=== PATIENT | male | born 1995 | race African-American/Black ===

== ENCOUNTER 2024-10-02 17:33 | Emergency (ER) | payer SELFPAY ==
[2024-10-02 17:41] VITALS: BP 147/88
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
[2024-10-02] MEDS: ADACEL 0.5 ML IM (18:52)
== END 2024-10-02 19:04 | disposition home or self-care (01) ==
LOC: EMR 17:33
PROVIDERS: EMERGENCY PHYSICIAN Emergency Medicine
DX: S21.111A Laceration without foreign body of right front wall of thorax without penetration into thoracic cavity, initial encounter (principal); V43.52XA Car driver injured in collision with other type car in traffic accident, initial encounter; Y92.410 Unspecified street and highway as the place of occurrence of the external cause; Z23 Encounter for immunization
CPT/HCPCS: 99282; 12001; 90715